=== PATIENT | female | born 1995 | race Two or more races ===

== ENCOUNTER 2024-10-08 20:36 | Emergency (ER) | payer MEDICAID, SELFPAY ==
[2024-10-08 20:37] VITALS: BP 163/75; PULSE 99; RESP 18; TEMP 36.9; O2SAT 100
--- NOTE | 2024-10-08 20:41 | PC.NURSE ---
Confirmed with charge entry Alex that pt is to be seen here in ED rather than sent straight to OB.
[2024-10-08 21:30] LABS: Collection Type, Urine Clean Catch
[2024-10-08 21:55] LABS: Bacteria,Urine Rare; Bilirubin,Urine Negative (Negative); Blood,Urine 2+ (Negative); Clarity,Urine Clear (Clear/Hazy); Color,Urine Colorless (Lt Yel-Yel); Glucose, Urine Negative (Negative); Ketones,Urine Negative (Negative); Leukocyte Esterase,Urine Positive (Negative); Nitrite,Urine Negative (Negative); PH,Urine 6.5 (5.0-7.0); Protein,Urine Negative (Neg - Trace); RBC,Urine 4 /hpf (0-3); Specific Gravity,Urine 1.005 (1.001-1.035); Squamous Epithelial Cell,Urine 3 /hpf (0-5); Urobilinogen,Urine Negative mg/dL (0.0-1.0); WBC,Urine 3 /hpf (0-5)
[2024-10-08 22:25] VITALS: BP 148/72; PULSE 82; RESP 18; O2SAT 98
--- NOTE | 2024-10-08 23:59 | EDNOTE_ITS ---
ED Female Urogenital RME/HPI General Chief complaint: Urogenital-Female Stated complaint: HEMATURIA Time Seen by Provider: 10/08/24 20:46 Arrival date/time: 10/08/24 20:36 28F with no significant PMH presents to ED with 2 days of dysuria/hematuria. Patient denies flank pain and fevers/chills. Patient is currently . Patient denies ab pain, but is not sure if there's vaginal bleeding. Limitations: no limitations Related Data Previous Rx's ?Medication ?Instructions ?Recorded cephalexin 500 mg capsule 500 mg PO TID 7 days #21 caps 10/08/24 Allergies Allergy/AdvReac Type Severity Reaction Status Date / Time No Known Allergies Allergy Verified 10/08/24 20:38 Review of Systems Review of Systems Systems Reviewed: All systems reviewed, normal except as documented Constitutional Constitutional: Reports system reviewed and no additional complaints, except as documented, Denies fever(s) and Denies headache(s) ENT Ears, Nose, Mouth, and Throat: Denies disequilibrium and Denies headache(s) Cardiovascular Cardiovascular: Reports system reviewed and no additional complaints, except as documented, Denies chest pain and Denies dyspnea Respiratory Respiratory: Reports system reviewed and no additional complaints, except as documented, Denies cough and Denies dyspnea Gastrointestinal Gastrointestinal: Reports system reviewed and no additional complaints, except as documented, Denies abdominal pain, Denies nausea and Denies vomiting Genitourinary Genitourinary: Reports as per HPI and Reports dysuria Neurologic Neurologic: Reports system reviewed and no additional complaints, except as documented, Denies confusion, Denies disequilibrium and Denies headache(s) Psychiatric Psychiatric: Denies confusion Past Medical History Past Medical History CARDIAC: Negative Cardiac Disorders or Congestive Heart Failure RESPIRATORY: Negative Chronic Obstructive Pulmonary Disease (COPD) or Asthma GENITOURINARY: Negative Renal Disease ENDOCRINE: Negative Diabetes Mellitus Type 1 or Diabetes Mellitus Type 2 HEMATOLOGIC: Negative Sickle Cell Disease Social History SMOKING STATUS: Never smoker SUBSTANCE USE: does not use ED Exam General Limitations: Present no limitations General appearance: Present alert and in no apparent distress Head Head exam: Present atraumatic Eye Eye exam: Present normal appearance, PERRL and EOMI ENT ENT exam: Present normal exam, normal oropharynx and mucous membranes moist Neck Neck exam: Present normal inspection, full ROM and trachea midline Chest Chest inspection: Present normal inspection and symmetric chest wall rise Respiratory Respiratory exam: Present normal lung sounds bilaterally Cardiovascular Cardiovascular exam: Present regular rate, normal rhythm and normal heart sounds Abdominal Exam Abdominal exam: Present soft and normal bowel sounds Extremities Exam Extremities exam: Present normal inspection and full ROM Back Exam Back exam: Present normal inspection and full ROM Neurological Exam Neurological exam: Present alert, oriented X3 and CN II-XII intact Psychiatric Psychiatric exam: Present normal affect and normal mood Skin Skin exam: Present warm, dry, intact and normal color Course Quality Measures none Orders Category Date Time Status Urinalysis Stat Lab 10/08/24 21:27 Completed Urine Culture Stat Lab 10/08/24 21:27 Received Vital Signs Vital signs: Vital Signs Temperature 98.5 F 10/08/24 20:37 Pulse Rate 99 10/08/24 20:37 Respiratory Rate 18 10/08/24 20:37 Blood Pressure 163/75 H 10/08/24 20:37 Pulse Oximetry (%) 100 10/08/24 20:37 Oxygen Delivery Method Room Air 10/08/24 20:37 O2 at 100% on RA and WNLs Urogenital - Female MDM Narrative MDM Narrative:: 28F with no significant PMH presents to ED with 2 days of dysuria/hematuria. Patient denies flank pain and fevers/chills. Patient is currently . Patient denies ab pain, but is not sure if there's vaginal bleeding. Physical exam reveals no ab/flank tenderness. Patient is afebrile, calm, and alert. UA clean except some blood. Will treat given and symptoms. Patient sent to OB upstairs for evaluation. Patient data External records reviewed:: None Clinical information provided by:: patient Social determinants that could affect healthcare access:: none Patient has the following chronic illnesses:: none How is presenting disease/condition affected by chronic disease/condition?: no chronic disease Evaluation data The following diagnostics were reviewed and interpreted by me:: lab results Lab and/or radiology exams considered but not ordered:: ordered Interpretation Summary: above Medications / Prescriptions Medications or Prescriptions considered but not ordered:: not ordered Medication administrations:: n/a Consultations Consultation(s) initiated? (list below): No Diagnosis Urogenital Female Differential Diagnosis: urinary tract infection, bacterial vaginosis, trichomoniasis, cervicitis, ovarian cyst, vaginitis, ruptured ovarian cyst, cyst of Bartholin's gland, cystitis, dysmenorrhea and other (dysuria) Most likely diagnosis given after review of the tests above:: dysuria Admission Indicated Admission indicated?: not indicated Admission Request Was there a request for admission?: No Disposition Plan Disposition Plan: Discharge Discharge Attestation Discharge Attestation: The patient and all family members were given an opportunity to ask questions and understood the discharge instructions. Discharge instructions specifically effects, indications for sooner follow up or return to the emergency department, and the expected course of current diagnosis. Patient condition: Stable Discharge Plan Plan Patient Disposition: HOME (Self Care) Disposition Comment: Stable Prescriptions/Referrals Prescriptions/Med Rec: New cephalexin 500 mg capsule 500 mg PO TID 7 Days Qty: 21 0RF Referrals: Nolberto Rodriguez MD [Primary Care Provider] - In 1 week Problem List Clinical Impression: Dysuria Patient/Caregiver Discharge Instructions Additional Instructions: Please follow-up with PCP within 24-48 hours and return immediately if symptoms worsen. Print Language: Georgian Stand Alone Forms: Patient Portal Info Letter ZHENG/RAUL Supervising Physician MARU Supervising Physician: Dr. Rosales
== END 2024-10-08 22:21 | disposition home or self-care (01) ==
PROVIDERS: Physician Assistant; Emergency Provider Emergency Medicine; PCP Family Medicine
DX: O26.899 Other specified pregnancy related conditions, unspecified trimester (principal); Z3A.00 Weeks of gestation of pregnancy not specified; R30.0 Dysuria
CPT/HCPCS: 81001; 87086; 99283

== ENCOUNTER 2024-10-08 22:20 | Observation (INO) | payer MEDICAID, SELFPAY ==
[2024-10-08 22:42] VITALS: BP 126/72; PULSE 91
[2024-10-08 23:30] VITALS: BMI 42.3
[2024-10-08] MEDS: cefTRIAXone 1,000 MG, LIDOCAINE 1% 20 ML 2.1 ML IM (23:43)
== END 2024-10-09 01:01 | disposition home or self-care (01) ==
PROVIDERS: Admitting Provider Obstetrics & Gynecology; Visit Provider Obstetrics & Gynecology
DX: O46.93 Antepartum hemorrhage, unspecified, third trimester (principal); Z3A.29 29 weeks gestation of pregnancy
CPT/HCPCS: 59899; 96372; J0696; J3490

== ENCOUNTER 2024-12-13 09:35 | Outpatient (RCR) | payer MEDICAID, SELFPAY ==
--- NOTE | 2024-11-29 10:05 | XR_ITS ---
Examination: Biophysical profile, ultrasound Date and time of exam: November 29, 2024 1021 hours INDICATIONS: Diagnosis maternal obesity Technique: Multiple transabdominal sonographic images of the pelvis abdomen obtained. Attention is directed to the breathing movement, gross body movement, amniotic fluid volume and tone. Findings: Amniotic fluid index 18.1 cm Total biophysical profile is 8 of 8. breathing movement is 2. Gross body movement is 2. tone is 2. Qualitative amniotic fluid volume is 2 Impression: Biophysical profile is 8 of 8.
[2024-11-29 11:27] VITALS: BP 116/67; PULSE 97; RESP 18; TEMP 36.8
--- NOTE | 2024-12-06 10:02 | XR_ITS ---
Examination: Biophysical profile, ultrasound Date and time of exam: Febrile 4 2024 1432 hours INDICATIONS: Diagnosis maternal obesity Technique: Multiple transabdominal sonographic images of the pelvis abdomen obtained. Attention is directed to the breathing movement, gross body movement, amniotic fluid volume and tone. Findings: Amniotic fluid index 14.8 cm Total biophysical profile is 8 of 8. breathing movement is 2. Gross body movement is 2. tone is 2. Qualitative amniotic fluid volume is 2 Impression: Biophysical profile is 8 of 8.
[2024-12-06 10:48] VITALS: BP 115/75; PULSE 91; RESP 19; TEMP 36.3
--- NOTE | 2024-12-13 09:43 | XR_ITS ---
Examination: Biophysical profile, ultrasound Date and time of exam: December 13, 2019 5:10 AM INDICATIONS: Diagnosis obesity complicating Technique: Multiple transabdominal sonographic images of the pelvis abdomen obtained. Attention is directed to the breathing movement, gross body movement, amniotic fluid volume and tone. Findings: Amniotic fluid index 8.9 cm Total biophysical profile is 8 of 8. breathing movement is 2. Gross body movement is 2. tone is 2. Qualitative amniotic fluid volume is 2 Impression: Biophysical profile is 8 of 8.
[2024-12-13 10:28] VITALS: BP 131/79; PULSE 93; RESP 15; TEMP 36.7
== END 2024-12-13 23:59 | disposition home or self-care (01) ==
LOC: S4S1 09:35
PROVIDERS: PCP Nurse Practitioner Women's Health; Referring Provider Nurse Practitioner Women's Health; Visit Provider Nurse Practitioner Women's Health
DX: O99.213 Obesity complicating pregnancy, third trimester (principal); E66.9 Obesity, unspecified; Z3A.39 39 weeks gestation of pregnancy
CPT/HCPCS: 59025; 76819

== ENCOUNTER 2024-12-17 16:08 | Observation (INO) | payer MEDICAID, SELFPAY ==
[2024-12-17 16:20] VITALS: BP 130/87; PULSE 103
[2024-12-17 16:22] VITALS: TEMP 36.8; BMI 46.0
[2024-12-17 16:28] VITALS: BP 130/87; PULSE 103; RESP 100; RESP 18; TEMP 36.8
--- NOTE | 2024-12-17 17:04 | ESPR_ITS ---
Documentation for date of: 12/17/24 OB Labor Progress Note Assessment and Plan Comments: Patient is a 29yo G1 with SIUP at 39+5wk presenting to L&D for antepartum testing indicated for elevated starting BMI. She notes no painful/regular ctx, no vaginal bleeding, no loss of fluid. Normal movement. Only concern is pelvic pressure. Current : This is complicated by: current BMI 46 She has had regular OB care with her OBGYN ROS negative other than what was described above. Vitals wnl, afebrile General: well developed, well nourished, no acute distress, conversant Cardiac: normal heart rate Lungs: breathing without distress Abdomen: soft, gravid, non-tender, no rebound or guarding Extremities: no pain with palpation of calves NST: Reactive, +accels, no decels, mod bharat [place]: no regular ctx pattern Bedside ultrasound performed by Dr. Dodge: SIUP with cephalic presentation, +FCA, active FM, posterior placenta, DENISE 9cm Assessment: Patient is a 29yo G1 with SIUP at 39+5wk with reassuring maternal and status based on NST/DENISE (modified BPP). Vitals wnl, benign exam. Plan: -Discussed reassuring findings with patient -Follow up: will be called for IOL as soon as bed is available -Discussed return precautions. Dalila Dodge MD
== END 2024-12-17 17:05 | disposition home or self-care (01) ==
PROVIDERS: Admitting Provider Obstetrics & Gynecology; PCP Family Medicine; Visit Provider Obstetrics & Gynecology
DX: O26.893 Other specified pregnancy related conditions, third trimester (principal); Z3A.39 39 weeks gestation of pregnancy; R10.30 Lower abdominal pain, unspecified
CPT/HCPCS: 59025; 59899

== ENCOUNTER 2024-12-18 01:11 | Inpatient (IN) | payer MEDICAID, SELFPAY ==
[2024-12-18] VITALS (20 sets, daily range): BP systolic 105–172; BP diastolic 58–94; PULSE 93–110; RESP 15–18; TEMP 36.6–37.4; BMI 47.0
--- NOTE | 2024-12-18 01:40 | XR_ITS ---
Examination: Complete OB ultrasound greater than 14 weeks Date and time of exam: December 20, 2024 0205 hrs. Indications: Labor induction today, unknown presentation Findings: Viable intrauterine single fetus with single amniotic sac presentation cephalic spine anterior Cardiac motion 155 BPM Placenta fundal grade 3 Umbilical cord insertion seen Amniotic fluid index 17.4 cm spine anterior Cervix 3.6 cm Ovaries obscured by bowel gas. Composite estimated gestational age based on BPD, head circumference, abdominal circumference, femur length is 39 weeks 2 days Estimated weight 3725 g. Survey of intracranial anatomy, spinal anatomy, abdominal anatomy, four-chamber heart performed with no abnormalities identified. Impression: Viable intrauterine gestation cephalic presentation.
[2024-12-18 01:46] LABS: Basophils % (Auto) 0 % (0-2.5); Eosinophils # (Auto) 0.2 Thou/mm3 (0.0-0.5); Eosinophils % (Auto) 2 % (0-10); Hematocrit 30.9 % (36.0-46.0); Hemoglobin 10.4 g/dL (12.0-16.0); Immature Granulocytes % (Auto) 1 % (0-0); Immature Granulocytes Auto 0.05 Thou/mm3 (0.00-0.00); Lymphocytes # (Auto) 2.1 Thou/mm3 (1.0-4.8); Lymphocytes % (Auto) 21 % (10-50); Mean Corpuscular HGB Conc 33.7 g/dl (31.0-37.0); Mean Corpuscular Volume 80 fL (80-100); Monocytes # (Auto) 0.6 Thou/mm3 (0.0-0.8); Monocytes % (Auto) 6 % (0-12); Neutrophils % (Auto) 70 % (37-80); Nucleated Red Blood Cell % 0 /100 WBC (0); Platelet Count 294 Thou/mm3 (140-440); RDW Standard Deviation 42.9 fL (36.4-46.3); Red Blood Count 3.85 Miln/mm3 (4.00-5.20)
[2024-12-18 02:14] LABS: Amphetamine/Metham Scrn,Ur OB Negative (Negative); Benzoylecgonine Screen, Ur OB Negative (Negative); Opiate Screen,Urine OB Negative (Negative); THC Screen,Urine OB Negative (Negative)
[2024-12-18 03:51] LABS: Syphilis Nonreactive (Nonreactive)
[2024-12-18] MEDS: DINOPROSTONE 10 MG VAG.SUPP VAGINAL (04:46)
--- NOTE | 2024-12-18 11:36 | PD.LDHP ---
Documentation for date of: 12/18/24 OB Labor/Induct. HPI History of Present Illness Chief complaint: scheduled induction : 1 History of sections: No History of : No Date of last menstrual period: 03/14/24 JESSE: 12/19/24 Gestational Age (weeks): 39 Gestational Age (days): 6 Gestational age based on last menstrual period: 39 Indication for induction: medical complication (Obesity, starting BMI 39) History of present illness: Patient presents for scheduled IOL. She has no regular/painful ctx. No LOF, no vaginal bleeding. Feels normal movement. History of Present Dating criteria: LMP confirmed by 2nd trimester US Adequate Care: Yes Medical complications: other (Obesity) Labs Labs: Negative: Hepatitis B, HIV, Chlamydia, Gonorrhea and Group Beta Strep Review of Systems Review of Systems Narrative Review of Systems: Review of Systems Systems Reviewed: All systems reviewed, normal except as documented Constitutional Constitutional: Denies body ache(s), Denies chills, Denies fever(s) and Denies headache(s) ENT Ears, Nose, Mouth, and Throat: Denies headache(s) and Denies vertigo Cardiovascular Cardiovascular: Denies chest pain, Denies palpitations, Denies dyspnea and Denies syncope Respiratory Respiratory: Denies cough, Denies dyspnea Gastrointestinal Gastrointestinal: Denies nausea and Denies vomiting Neurologic Neurologic: Denies convulsions, Denies headache(s), Denies other visual disturbances, Denies syncope and Denies vertigo Past Medical History Family History OTHER FAMILY HX: mother has T2DM Surgical History SURGICAL: Negative Section OTHER SURGICAL HX: denies Social History SOCIAL: No ETOH, tobacco or illicit drug use Past Medical History Comments PMH COMMENT: Starting BMI 39 Hx of nephrolithiasis 2019 Seasonal allergies Family hx of DM. Normal 2hr glucose test and HgbA1c 5.1 Meds Home Medications and Allergies Home Medications ?Medication ?Instructions ?Recorded ?Confirmed ?Type PNV#14-iron [id number] cap PO DAILY 12/17/24 History 27 mg iron-1 mg-300 mg-50 mg capsule Allergies Allergy/AdvReac Type Severity Reaction Status Date / Time No Known Allergies Allergy Verified 12/18/24 04:22 OB Exam Physical Exam Vital signs: Temp Pulse Resp BP 98.2 F 93 15 135/86 H 12/18/24 07:02 12/18/24 11:16 12/18/24 01:33 12/18/24 11:16 Narrative: General: well developed, well nourished, no acute distress, conversant Cardiac: normal heart rate Lungs: breathing without distress Abdomen: soft, gravid, obese, non-tender, no rebound or guarding Extremities: no pain with palpation of calves Detailed Labor and Delivery Exam Dilation (cm): 1 Effacement (%): 0 Cervix position: posterior station: -3 Consistency: firm Presentation: Vertex Membranes: intact monitor accelerations: 15x15 monitor decelerations: None custodial variability: Moderate (11-25) Contraction frequency (min): no regular ctx OB Results Labs 12/18/24 01:25 Labs: Short CBC 12/18/24 Range/Units 01:25 WBC 10.0 (3.6-11.0) Thou/mm3 Hgb 10.4 L (12.0-16.0) g/dL Hct 30.9 L (36.0-46.0) % Plt Count 294 (140-440) Thou/mm3 OB Assessment & Plan Assessment and Plan (1) Obesity affecting in third trimester: Status: Acute Assessment and plan: Sara is a 29yo G1 with SIUP at 39&6wk presenting for scheduled IOL 2/2 starting BMI 39. SCE: 1/thick/high, posterior, cephalic. Vitals wnl, benign exam. Reassuring assessment overall. care: Good care with [facility] PMhx/PNC significant for: -Starting BMI 39 -Hx of nephrolithiasis 2019 -Seasonal allergies -Family hx of DM. Normal 2hr glucose test and HgbA1c 5.1 Plan: -Admit to L&D -Establish IV, routine labs -CEFM -Regular diet [id number], then clear liquid diet in labor -[place] Aide/consent re: iol and -GBS status: negative -Will initiate IOL with: cervidil -Anticipate -Safe to proceed Dalila Dodge MD (1) Obesity affecting in third trimester Qualifiers: Obesity type affecting : other obesity Qualified Code(s): O99.213 - Obesity complicating , third trimester; E66.89 - Other obesity not elsewhere classified
[2024-12-18] MEDS: MISOPROSTOL 50 mCg TABLET PO ×2 (14:54→19:01)
[2024-12-18] MEDS: OXYTOCIN in NS 30 units 30 UNIT/500 ML BAG IV (23:39)
[2024-12-19] VITALS (323 sets, daily range): BP systolic 107–159; BP diastolic 58–108; PULSE 80–124; RESP 18; TEMP 36.6–37; O2SAT 80–100
[2024-12-19] MEDS: RINGERS LACTATED 1000 ML 1,000 ML 125 ML IV ×2 (02:23→04:08)
--- NOTE | 2024-12-19 03:56 | PD.LDPN ---
Documentation for date of: 12/19/24 OB Labor Progress Note Pelvic Exam Dilation (cm): 5 Effacement (%): 75 station: -2 Assessment and Plan Comments: Patient just received epidural and is comfortable. Normotensive to mild range bp's, afebrile On exam, there is grossly ruptured membranes, clear. SCE now 5/80/-2. RN requested placement of IUPC and FSE to better monitor FHRT and ctx pattern. These were placed without incident. Cat I FHRT Plan to continue to titrate pitocin per protocol CEFM Continue to closely monitor Safe to proceed Dalila Dodge MD
--- NOTE | 2024-12-19 10:28 | PD.LDPN ---
Documentation for date of: 12/19/24 OB Labor Progress Note Pelvic Exam Dilation (cm): 5 Effacement (%): 75 station: -2 Contractions Contraction frequency: no regular ctx Assessment and Plan Comments: Patient comfortable with epidural. IV pitocin has been at 5mu for quite a while. Vitals wnl, afebrile Cat I FHRT Ctx q5min SCE: 5/80/-2, not much change from previous. Plan: -Titrate up pitocin per protocol to obtain adequate MVUs -CEFM -Continue to closely monitor -Recheck in 2hr or earlier as indicated -Safe to proceed Dalila Dodge MD
--- NOTE | 2024-12-19 20:36 | PD.LDPN ---
Documentation for date of: 12/19/24 OB Labor Progress Note Pelvic Exam Dilation (cm): 8 Effacement (%): 80 station: -1 Assessment and Plan Comments: Patient doing well, has just a bit of discomfort on the lower right side of uterus with her epidural. Vitals: normotensive to mild range bp's, afebrile Cat I FHRT with regular ctx SCE: 80/-1 Will continue to titrate pitocin per protocol Continue to closely observe PIH labs for mild range bp's CEFM Plan re-check in 2hr or sooner if indicated Safe to proceed Dalila Dodge MD
[2024-12-19 22:03] LABS: Creatinine,Random Urine 155 mg/dL (30-125); Protein Total, Random Urine 169 mg/dL (1-14)
[2024-12-19 22:04] LABS: Alanine Aminotransferase 12 U/L (10-49); Albumin, Serum 3.5 gm/dL (3.5-5.0); Albumin/Globulin Ratio 1.3 (1.2-2.2); Alkaline Phosphatase 236 U/L (46-116); Anion Gap 11 (7-16); Aspartate Amino Transferase 22 U/L (0-34); BUN/Creatinine Ratio 16 Ratio (12-20); Bilirubin,Total 0.7 mg/dL (0.3-1.2); Blood Urea Nitrogen 11 mg/dL (9-23); Calcium 8.8 mg/dL (8.3-10.6); Calcium (Corrected) 9.2 mg/dL (8.5-10.1); Carbon Dioxide 18.1 mMol/L (20.0-31.0); Chloride 110 mMol/L (98-107); Creatinine (Component) 0.7 mg/dL (0.6-1.3); Globulin 2.6 gm/dL (2.3-3.5); Glucose 73 mg/dL (74-106); Osmolality,Calculated 275 (275-295); Potassium 3.9 mMol/L (3.4-5.1); Sodium 139 mMol/L (136-145); Total Protein 6.1 gm/dL (5.7-8.2); eGFR > 60 See Note
[2024-12-20] VITALS (31 sets, daily range): BP systolic 101–148; BP diastolic 68–88; PULSE 87–124; RESP 16–19; TEMP 36.5–38.4; O2SAT 95–100
[2024-12-20] MEDS: FAMOTIDINE INJ 10 MG/ML VIAL 2 ML 20 MG IV (01:38)
[2024-12-20] MEDS: ceFAZolin/D5W 2 GM IV 2 GM/100 ML BAG IV (01:38)
[2024-12-20] MEDS: CITRIC ACID/SODIUM CITR 15 ML UDC (BICITRA) 30 ML PO (01:38)
[2024-12-20] MEDS: AZITHROMYCIN INJ 500 MG in SODIUM CHLORIDE 0.9% 250 ML 250 ML 250 MG IV (01:42)
--- NOTE | 2024-12-20 01:47 | ESPR_ITS ---
Documentation for date of: 12/20/24 OB Labor Progress Note Pelvic Exam Dilation (cm): 8 Effacement (%): 80 station: -1 Contractions Contraction frequency: no regular ctx Assessment and Plan Comments: Decision for section Patient having more discomfort, mostly right lower abdomen, despite epidural. R equesting delivery. Vitals: bp normal to mild range, afebrile Cat I FHRT SCE: 8/80/-1, light meconium staining. PIH labs: normal creatinine and LFTs. Urine p:c 1.1. New diagnosis of pre-eclampsia withOUT severe features Given no cervical change in over 5 hours, will proceed with PLTCS for arrest of dilation. -Counseled/consented re: section. Discussed all r/b/a to include: bleeding (possible need for blood transfusion), infection (subcutaneous, deeper layers or uterine with possible need for prolonged admission or re-admission for IV antibiotics, I&D with wound packing, etc), injury to nearby structures such as bladder, bowel, ureters, blood vessels, nerves with possible need for re- operation, pain, injury to baby, hysterectomy, DVT/PE, . Answered all questions to patient and their support person's satisfaction. -IV abx ppx: ancef 2g IV x1 and azithromycin 500mg IV x1 -Nursing and anesthesia team aware of plan for section. Will proceed to OR when team is ready Dalila Dodge MD
--- NOTE | 2024-12-20 02:44 | SUR.OPER ---
heart tones with results of 134 BPM with FECG/MECG attachment and machine. Viable male born at 0216.
[2024-12-20] MEDS: LOPERAMIDE 2 MG CAPSULE 4 MG PO (03:22)
--- NOTE | 2024-12-20 03:29 | ESOP_ITS ---
Operative Note - SENIOR BENEFITS MANAGER Procedure Date of procedure: 12/20/24 Procedure Performed: primary low transverse section Indication: Sara is a 29yo with SIUP at 40w1d undergoing IOL for obesity, starting BMI 39. She received cervidil, cytotec, cervical cano bulb and pitocin. She experienced arrest of dilation at 7cm for > 5 hours despite adequate MVUs on high dose pitocin. During her labor course she had mild range blood pressures, so PIH labs were performed and urine p:c was 1.1, giving diagnosis of pre- eclampsia withOUT severe features. Pre-Op diagnosis: SIUP at 40w1d Obesity, starting BMI 39 Arrest of dilation Pre-eclampsia withOUT severe features Post-Op diagnosis: SIUP at 40w1d Obesity, starting BMI 39 Arrest of dilation Pre-eclampsia withOUT severe features Anesthesia type: Epidural Procedure description: After obtaining informed consent, the patient was taken to the operating room. There was reassuring heart rate tracing prior. She had epidural in place. A cano catheter was also in place. Bilateral sequential compression devices were placed. She was prepped and draped in the normal sterile fashion in the dorsal supine position with left lateral tilt. A timeout was performed to confirm patient name, date of , procedure and indication. The team was in agreement. Spinal anesthesia was found to be adequate using an Allis clamp. Anceph 2g IV x1 and azithromycin 500mg IV x1 were given for prophylaxis. A Pfannenstiel skin incision was then made with the scalpel and carried through to the underlying layer of fascia. The fascia was incised in the midine and the incision was extended laterally with the Camarena scissors. The superior and inferior aspects of the fascial incision were then grasped with the Noam clamps, elevated and the underlying rectus muscles were dissected off bluntly and sharply. The peritoneum was entered digitally and the rectus muscles were then in the midline. The peritoneal incision was then extended superiorly and inferiorly with good visualization of the bladder. An Andrew re tractor was placed. The lower uterine segment was scored in a transverse fashion with the scalpel. The uterus was then entered bluntly and the incision was extended with traction with clear amniotic fluid noted. The 's head was elevated to the level of the incision. Fundal pressure was applied. The head was delivered atraumatically in the OA position. The anterior shoulder, posterior shoulder and corpus were delivered without difficulty. The nose and mouth were suctioned with bulb suction and cord was clamped x2 and cut. Infant was vigorous. The infant was handed off to the awaiting nursing team. Cord blood obtained for typing. The placenta was then removed with uterine massage and cord traction. The uterus was left in situ for repair and cleared of all clot and debris. The uterine incision was repaired with 0-vicryl suture in a running locking fashion. A second layer of O-vicryl was used to closed the hysterotomy incision in an imbricating fashion. The uterine incision was inspected and hemostasis was noted. In addition to standard IV pitocin, patient received TXA 1g IV x1 and hemabate 0.25mg IM x1 with good uterine tone achieved. The gutters were cleared of all clot. Andrew retractor was removed. The peritoneum was closed using a 3-0 vicryl suture in running fashion. The rectus muscles were inspected and small areas of oozing were cauterized. The fascia was reapproximated with 0-Vicryl suture in a running fashion. The subcutaneous tissue was then irrigated. Alma's fascia was closed using 3-0 vicryl suture in a running fashion. At that point SHARLENE Heredia sutured the skin with 4-0 monocryl suture in running subcuticular fashion. The incision was cleaned with a wet lap and dried with a dry lap. [id number] bandage was applied overlying the incision and activated according to stamping operator instructions. Fundus was firm at the umbilicus. Sponge, lap and needle counts were correct x2. Patient had significant diarrheal episode with fundal massage which necessitated cleaning her and switching out the cano catheter. Will give immodium to counteract hemabate side effect. The procedure was without complications and the patient tolerated the procedure well. She was taken to recover further on Labor and Delivery, in stable condition. Fluids: crystalloid Fluid amount (mL): 1,300 Urine output (mL): 250 Specimen: none Estimated blood loss (ml): 700 Findings: Male in cephalic presentation, apgars 8/9, [id number], TOB 0216. Normal appearing uterus, fallopian tubes and ovaries. Complications: none Surgical staff Operation Date: 12/20/24 02:00 Case Staff EYE CLINIC MANAGER: Srinivasa Forde Diagnosis Discharge Diagnosis (1) Arrest of dilation, delivered, current hospitalization: Status: Acute (2) Mild pre-eclampsia: Status: Acute (3) Obesity affecting in third trimester: Status: Acute Problem List Completed Was Problem List Reviewed/Reconciled?: Yes (2) Mild pre-eclampsia Qualifiers: Trimester: third trimester Qualified Code(s): O14.03 - Mild to moderate pre- eclampsia, third trimester (3) Obesity affecting in third trimester Qualifiers: Obesity type affecting : other obesity Qualified Code(s): O99.213 - Obesity complicating , third trimester; E66.89 - Other obesity not elsewhere classified
[2024-12-20] MEDS: OXYTOCIN in NS 20 units 20 UNIT/1,000 ML BAG 125 UNIT IV (05:24)
--- NOTE | 2024-12-20 10:39 | PC.SS ---
SS conducted bedside contact with the patient to address nursing referral indicating patient was late to care. SS introduced self and role.? SS asked for permission to discuss referral in the presence of FOB. Patient agreed.? SS discussed with patient basis of referral. Patient confirmed she was late to care because she didn?t know she was . There was a barrier to getting a scheduled appointment with OB services.? ticket counter, Gracy Chapin at [facility] provided services.? Patient resides with [facility] and his 16 year old son. Patient describes, FOB, Олег Braun, as involved with the . This is patient?s first baby. , baby boy delivered . Patient states consistency with OB appointments. Patient plans on .? Patient is not aligned yet with WIC, SNAP or TANF. Patient may consider applying for SNAP. Patient denies history of drug/alcohol use. Patient denies mental health history. Patient denies any episodes of DV. Patient has access to appropriate supplies and equipment.? Patient has access to a car seat.? FOB will provide transportation upon discharge.? Patient describes possessing support system consisting of spouse and extended family.? ambulatory services representative provided resources to include:? Parenting network, warm line and community numbers.? No further intervention required at this time, psychologist social will be available to address any further concerns.? SS updated bedside nurse.
--- NOTE | 2024-12-20 12:20 | PC.NURSE ---
removed rectal tube, patient tolerated well.
[2024-12-20] MEDS: KETOROLAC INJ 30 MG/ML VIAL IVP (13:04)
--- NOTE | 2024-12-20 17:41 | PC.NURSE ---
patient refused to get IV fluid after 2nd bag of NS with oxytocin finished, she stated that she wants to drink water instead of IV fluid.
[2024-12-21 00:11] VITALS: BP 103/59; PULSE 110; RESP 19; TEMP 36.6; O2SAT 100
[2024-12-21 06:07] LABS: Basophils % (Auto) 0 % (0-2.5); Eosinophils # (Auto) 0.1 Thou/mm3 (0.0-0.5); Eosinophils % (Auto) 1 % (0-10); Hematocrit 25.4 % (36.0-46.0); Immature Granulocytes % (Auto) 1 % (0-0); Lymphocytes # (Auto) 1.7 Thou/mm3 (1.0-4.8); Lymphocytes % (Auto) 10 % (10-50); Mean Corpuscular HGB Conc 32.7 g/dl (31.0-37.0); Mean Corpuscular Hemoglobin 26.7 pg (25.0-35.0); Mean Corpuscular Volume 82 fL (80-100); Monocytes % (Auto) 6 % (0-12); Neutrophils # (Auto) 14.1 Thou/mm3 (1.8-7.7); Neutrophils % (Auto) 82 % (37-80); Nucleated Red Blood Cell % 0 /100 WBC (0); Platelet Count 227 Thou/mm3 (140-440); RDW Standard Deviation 45.4 fL (36.4-46.3); Red Blood Count 3.11 Miln/mm3 (4.00-5.20); White Blood Count 17.2 Thou/mm3 (3.6-11.0)
[2024-12-21 06:12] LABS: Hemoglobin 8.3 g/dL (12.0-16.0)
--- NOTE | 2024-12-21 06:32 | PC.NURSE ---
[address] Zhao to notify her of the patents current WBC level 17.2, HGB 8.3, and HCT 25.4, no new orders.
[2024-12-21] MEDS: HYDROcodone/APAP 5/325 TABLET 1 TAB PO ×2 (07:03→22:41)
[2024-12-21 08:30] VITALS: BP 115/78; PULSE 102; RESP 18; TEMP 36.7; O2SAT 99
--- NOTE | 2024-12-21 10:32 | ESPR_ITS ---
Subjective Subjective Interval history: Patient doing well overall. Pain is controlled. She is ambulating no lightheadedness/dizziness. Voiding spontaneously since cano was removed, no issues. Tolerating regular diet without nausea/vomiting. Passing gas. No fevers/chills, no CP/SOB. Exam Vital Signs Temp Pulse Resp BP Pulse Ox O2 Del Method 98.1 F 102 H 18 115/78 99 Room Air 12/21/24 08:30 12/21/24 08:30 12/21/24 08:30 12/21/24 08:30 12/21/24 08:30 12/21/24 08:30 Narrative Exam General: well developed, well nourished, no acute distress, conversant Cardiac: normal heart rate Lungs: breathing without distress Abdomen: soft, post-gravid, non-tender, no rebound or guarding, pfannenstiel incision covered by dry/clean/intact prineo bandage. Incision well reapproximated. No erythema, drainage or induration. Fundus firm at u-2cm. Extremities: no pain with palpation of calves, trace edema of BLE Objective Labs 12/21/24 05:20 12/19/24 20:54 Labs: Laboratory Results - last 24 hr 12/21/24 12/21/24 05:20 09:20 WBC 17.2 H D RBC 3.11 L Hgb 8.3 L D Hct 25.4 L MCV 82 MCH 26.7 MCHC 32.7 RDW Std Deviation 45.4 Plt Count 227 D Neut % (Auto) 82 H Lymph % (Auto) 10 [place] % (Auto) 6 Eos % (Auto) 1 Baso % (Auto) 0 Neut # (Auto) 14.1 H Lymph # (Auto) 1.7 [place] # (Auto) 1.0 H Eos # (Auto) 0.1 Baso # (Auto) 0.0 Immature Gran # (Auto) 0.20 H Absolute Nucleated RBC 0.00 Immature Gran % 1 H Nucleated RBC % 0 Crossmatch See Detail Assessment & Plan Problem List (1) Arrest of dilation, delivered, current hospitalization: Status: Acute Assessment and plan: Sara is a 29yo [id number] s/p uncomplicated PLTCS for arrest of dilation during IOL for obesity, doing well on POD 1. She was diagnosed with pre-eclampsia withOUT severe features in labor by mild range bp's with urine p:c 1.1. Normotensive with slight tachycardia, afebrile, benign exam. Hemodynamically stable with no evidence of infection. Appropriate change in H/H (8.3 from 10.4). Plan: -Continue routine /post-op care -Repeat CBC tomorrow am to follow for slight tachycardia -Regular diet -motrin 800mg PO Q8hr, norco 5/325mg PO Q6hr prn pain -Encourage ambulation and use of IS -Possible discharge home tomorrow if meeting all milestones (2) Mild pre-eclampsia: Status: Acute (3) Obesity affecting in third trimester: Status: Acute Time Spent With Patient Time: Total time spent is greater than 50% in coordination of care (as documented) at patient's floor/unit and/or counseling patient:
[2024-12-21 12:15] VITALS: BP 125/80; PULSE 100; RESP 18; TEMP 37.2; O2SAT 100
[2024-12-21 16:20] VITALS: BP 117/62; PULSE 102; RESP 18; TEMP 36.8; O2SAT 98
[2024-12-21 20:16] VITALS: BP 117/78; PULSE 106; RESP 22; TEMP 37.3; O2SAT 99
[2024-12-22] MEDS: guaiFENesin/DM 10 ML UDC PO (01:33)
[2024-12-22 03:43] VITALS: BP 114/71; PULSE 105; RESP 24; TEMP 36.9; O2SAT 97
[2024-12-22 07:15] LABS: Basophils % (Auto) 0 % (0-2.5); Eosinophils # (Auto) 0.1 Thou/mm3 (0.0-0.5); Eosinophils % (Auto) 1 % (0-10); Hematocrit 24.7 % (36.0-46.0); Immature Granulocytes % (Auto) 1 % (0-0); Immature Granulocytes Auto 0.16 Thou/mm3 (0.00-0.00); Lymphocytes # (Auto) 1.6 Thou/mm3 (1.0-4.8); Lymphocytes % (Auto) 10 % (10-50); Mean Corpuscular HGB Conc 32.4 g/dl (31.0-37.0); Mean Corpuscular Hemoglobin 26.7 pg (25.0-35.0); Mean Corpuscular Volume 82 fL (80-100); Monocytes # (Auto) 0.8 Thou/mm3 (0.0-0.8); Monocytes % (Auto) 5 % (0-12); Neutrophils # (Auto) 12.7 Thou/mm3 (1.8-7.7); Neutrophils % (Auto) 83 % (37-80); Nucleated Red Blood Cell % 0 /100 WBC (0); Platelet Count 230 Thou/mm3 (140-440); RDW Standard Deviation 46.1 fL (36.4-46.3); White Blood Count 15.4 Thou/mm3 (3.6-11.0)
[2024-12-22 08:00] VITALS: BP 128/81; PULSE 103; RESP 20; TEMP 36.9; O2SAT 97
[2024-12-22] MEDS: HYDROcodone/APAP 5/325 TABLET 1 TAB PO (08:20)
--- NOTE | 2024-12-22 09:07 | ESPR_ITS ---
Subjective Subjective Interval history: Patient seen at the bedside denies any nausea vomiting still feels a little dizzy when she gets up. Denies any heavy vaginal bleeding with clots Exam Vital Signs Temp Pulse Resp BP Pulse Ox O2 Del Method 98.5 F 103 H 20 128/81 97 Room Air 12/22/24 08:00 12/22/24 08:00 12/22/24 08:00 12/22/24 08:00 12/22/24 08:00 12/22/24 08:00 Constitutional Constitutional: no acute distress Routine HEENT Exam Head: Present normocephalic and atraumatic Eye: Present EOMI and PERRL ENT: Present mucous membranes moist Routine Neck Exam Neck: Present supple and trachea midline Routine Respiratory Exam Respiratory: Present chest non-tender, lungs clear, normal breath sounds and no resp distress Routine Cardiovascular Exam Cardiovascular: Present RRR Routine Abdominal Exam Abdominal: Present soft and normoactive bowel sounds Routine Extremities Exam Extremities: Present full ROM Routine Skin Exam Skin: Present intact, dry and warm Routine Neurological Exam Neurological: Present alert, oriented X3 and CN II-XII intact Routine Psychiatric Exam Psychiatric: Present normal affect and normal thought process Objective Labs 12/22/24 05:47 12/19/24 20:54 Labs: Laboratory Results - last 24 hr 12/21/24 12/22/24 09:20 05:47 WBC 15.4 H RBC 3.00 L Hgb 8.0 L Hct 24.7 L MCV 82 MCH 26.7 MCHC 32.4 RDW Std Deviation 46.1 Plt Count 230 Neut % (Auto) 83 H Lymph % (Auto) 10 [place] % (Auto) 5 Eos % (Auto) 1 Baso % (Auto) 0 Neut # (Auto) 12.7 H Lymph # (Auto) 1.6 [place] # (Auto) 0.8 Eos # (Auto) 0.1 Baso # (Auto) 0.0 Immature Gran # (Auto) 0.16 H Absolute Nucleated RBC 0.00 Immature Gran % 1 H Nucleated RBC % 0 Blood Type O Positive Antibody Screen NEGATIVE Crossmatch See Detail Blood Bank Wristband ID Yes Assessment & Plan Problem List (1) Arrest of dilation, delivered, current hospitalization: Status: Acute (2) Mild pre-eclampsia: Status: Acute (3) Obesity affecting in third trimester: Status: Acute Assessment Comment Assessment comment: 29-year-old status post , postop day 3 Postop anemia hemoglobin 8.3 dropped to 8 today morning Symptomatic, heart rate more than 100 persistent Plan Comment Plan Comment: Transfusion with 1 unit packed RBC repeat CBC in 2 to 4 hours Time Spent With Patient Time: Total time spent is greater than 50% in coordination of care (as documented) at patient's floor/unit and/or counseling patient:
--- NOTE | 2024-12-22 10:30 | PC.NURSE ---
Patient refused blood transfusion, made aware. Patient given education
--- NOTE | 2024-12-22 10:54 | ESDS_ITS ---
DS: Providers Provider Date of admission: 12/18/24 01:11 Primary care physician: Nolberto Rodriguez MD Admitting Provider: Dalila Dodge MD Attending Provider on Admission: Renetta Zhao MD Consults: 12/20/24 03:25 Referral Routine Comment: Attending Provider on DC: Renetta Zhao MD Discharging Provider: Renetta Zhao MD DS: Diagnosis Problem List Completed Was Problem List Reviewed/Reconciled?: Yes Summary/Hosp Course Brief History: Patient has been doing well, can be discharged today , declined Blood transfusion Peripartum Data Procedures: Procedures Operation Date: 12/20/24 02:00 Actual Procedure Side Surgeon p Primary Section in OB/OR Not Applicable Dalila Dodge MD Time Spent with Patient Time attestation: Total time spent providing and/or coordinating discharge services: Exam Vital Signs Temp Pulse Resp BP Pulse Ox O2 Del Method 98.5 F 103 H 20 128/81 97 Room Air 12/22/24 08:00 12/22/24 08:00 12/22/24 08:00 12/22/24 08:00 12/22/24 08:00 12/22/24 08:00 Constitutional Constitutional: no acute distress Routine HEENT Exam Head: Present normocephalic and atraumatic Eye: Present EOMI and PERRL ENT: Present mucous membranes moist Routine Neck Exam Neck: Present supple and trachea midline Routine Respiratory Exam Respiratory: Present chest non-tender, lungs clear, normal breath sounds and no resp distress Routine Cardiovascular Exam Cardiovascular: Present RRR Routine Abdominal Exam Abdominal: Present soft and normoactive bowel sounds Routine Extremities Exam Extremities: Present full ROM Routine Skin Exam Skin: Present intact, dry and warm Routine Neurological Exam Neurological: Present alert, oriented X3 and CN II-XII intact Routine Psychiatric Exam Psychiatric: Present normal affect and normal thought process Discharge Plan Plan Patient Disposition: HOME (Self Care) Patient condition on transfer: Stable Prescriptions/Referrals Prescriptions/Med Rec: New acetaminophen-codeine 300-15 mg tablet 1 tab PO Q12H PRN (Reason: pain) Qty: 14 0RF ibuprofen 800 mg tablet 800 mg PO Q8H PRN (Reason: pain) Qty: 30 0RF No Action PNV #[id number] 27 mg iron-1 mg -300 mg-50 mg capsule PO DAILY Referrals: Nolberto Rodriguez MD [Primary Care Provider] - Patient/Caregiver Discharge Instructions Discharge Activity: activity as tolerated and other Other Discharge Activity Instructions:: vaginal rest and no heavy lifting greater than 10 pounds for 6 [address] while taking narcotic. keep incision clean and dry, do not submerge. Other Discharge Diet Instructions: Regular Education Materials: Understanding Preeclampsia, C Section Dc Print Language: Palestinian Activity Restrictions/Additional Instructions: follow up in clinic for incision check in 1 week, call for appointment Stand Alone Forms: Brooke Award Info., Patient Portal Info Letter Discharge Order Discharge Orders: Discharge (Routine); Ordered 12/22/24 Ordered By: Renetta Zhao Planned Discharge Date 12/22/24
== END 2024-12-22 12:00 | disposition home or self-care (01) | DRG 540 ==
LOC: S4SX 12-19 10:54 → S4NX 12-20 02:34
PROVIDERS: Admitting Provider Obstetrics & Gynecology; PCP Family Medicine; Visit Provider Student in an Organized Health Care Education/Training Program
PROC: (CPT 59514; principal; 2024-12-20 02:00)
DX: O14.04 Mild to moderate pre-eclampsia, complicating childbirth (principal); Z37.0 Single live birth; Z3A.40 40 weeks gestation of pregnancy; O99.214 Obesity complicating childbirth; O62.0 Primary inadequate contractions; E66.89 Other obesity not elsewhere classified; O99.892 Other specified diseases and conditions complicating childbirth; R19.7 Diarrhea, unspecified
CPT/HCPCS: 36415; 76805; 80053; 80307; 82570; 84156; 85025; 86780; 86850; 86900; 86901; 86923; 94664; A4649; J0456; J0689; J1100; J1885; J2250; J2405; J2590; J2795; J3010; J3490; J7050; J7120; A9270

== ENCOUNTER 2025-02-01 20:58 | Emergency (ER) | payer MEDICAID, SELFPAY ==
[2025-02-01 20:59] VITALS: BMI 41.0
[2025-02-01 21:05] VITALS: BP 144/81; PULSE 78; RESP 18; TEMP 36.6; O2SAT 100
--- NOTE | 2025-02-02 04:53 | EDNOTE_ITS ---
ED Skin Abcess FB-RME/HPI General Chief complaint: Skin/Abscess/Foreign Body Stated complaint: WOUND DRAINAGE FROM 12/20/24 Time Seen by Provider: 02/01/25 22:00 Arrival date/time: 02/01/25 20:58 29F with no significant PMH presents to ED with drainage from wound from 12/20/24. Patient denies pain and fevers/chills. Limitations: no limitations Related Data Home Medications ?Medication ?Instructions ?Recorded ?Confirmed PNV#14-iron fum-FA#4-[id number]-[id number] cap PO DAILY 5 27 mg iron-1 mg-300 mg-50 mg capsule Previous Rx's ?Medication ?Instructions ?Recorded acetaminophen 300 mg-codeine 15 mg 1 tab PO Q12H PRN p ain #14 tabs 12/22/24 tablet ibuprofen 800 mg tablet 800 mg PO Q8H PRN pain #30 t abs 12/22/24 Allergies Allergy/AdvReac Type Severity Reaction Status Date / Time No Known Allergies Allergy Verified 12/18/24 04:22 Review of Systems Review of Systems Systems Reviewed: All systems reviewed, normal except as documented Constitutional Constitutional: Reports system reviewed and no additional complaints, except as documented, Denies fever(s) and Denies headache(s) ENT Ears, Nose, Mouth, and Throat: Denies disequilibrium and Denies headache(s) Cardiovascular Cardiovascular: Reports system reviewed and no additional complaints, except as documented, Denies chest pain and Denies dyspnea Respiratory Respiratory: Reports system reviewed and no additional complaints, except as documented, Denies cough and Denies dyspnea Gastrointestinal Gastrointestinal: Reports system reviewed and no additional complaints, except as documented, Denies abdominal pain, Denies nausea and Denies vomiting Integumentary/Breasts Skin/Breast: Reports as per HPI and Reports wounds Neurologic Neurologic: Reports system reviewed and no additional complaints, except as documented, Denies confusion, Denies disequilibrium and Denies headache(s) Psychiatric Psychiatric: Denies confusion Past Medical History Past Medical History NEUROLOGIC: Negative Neurological Disorders or Seizures CARDIAC: Negative Cardiac Disorders or Congestive Heart Failure RESPIRATORY: Negative Chronic Obstructive Pulmonary Disease (COPD) or Asthma GASTROINTESTINAL: Negative Gastrointestinal Disorders GENITOURINARY: Positive Genitourinary Disorders and Kidney Stones; Negative Renal Disease REPRODUCTIVE: Negative Pelvic Inflammatory Disease or Previous Pregnancies MUSCULOSKELETAL: Negative Musculoskeletal Disorders ENDOCRINE: Negative Endocrine Disorders, Diabetes Mellitus Type 1 or Diabetes Mellitus Type 2 HEMATOLOGIC: Negative Blood Disorders or Sickle Cell Disease OTHER HISTORY: Negative Autoimmune Disease, Falls, Blood Transfusions, Blood Transfusion Reaction, Anesthesia Reactions or Cancer Family History FAMILY HISTORY: Negative Family Psychiatric Problems, Family Respiratory Disorders, Family Cardiac Disorders, Family Gastrointestinal Problems, Family Cancer, Family Surgery or Family Anesthesia Reaction Surgical History SURGICAL: Negative Section Social History SMOKING STATUS: Never smoker SUBSTANCE USE: does not use ED Exam General Limitations: Present no limitations General appearance: Present alert and in no apparent distress Head Head exam: Present atraumatic Eye Eye exam: Present normal appearance, PERRL and EOMI ENT ENT exam: Present normal exam, normal oropharynx and mucous membranes moist Neck Neck exam: Present normal inspection, full ROM and trachea midline Chest Chest inspection: Present normal inspection and symmetric chest wall rise Respiratory Respiratory exam: Present normal lung sounds bilaterally Cardiovascular Cardiovascular exam: Present regular rate, normal rhythm and normal heart sounds Abdominal Exam Abdominal exam: Present soft and normal bowel sounds Extremities Exam Extremities exam: Present normal inspection and full ROM Back Exam Back exam: Present normal inspection and full ROM Neurological Exam Neurological exam: Present alert, oriented X3 and CN II-XII intact Psychiatric Psychiatric exam: Present normal affect and normal mood Skin Skin exam: Present warm, dry, intact, normal color and other (Serous drainage from L side of wound) Course Quality Measures none Orders Category Date Time Status Wound Care NOW Care 02/01/25 22:01 Completed Vital Signs Vital signs: Vital Signs Temperature 97.8 F 02/01/25 21:05 Pulse Rate 78 02/01/25 21:05 Respiratory Rate 18 02/01/25 21:05 Blood Pressure 144/81 H 02/01/25 21:05 Pulse Oximetry (%) 100 02/01/25 21:05 Oxygen Delivery Method Room Air 02/01/25 21:05 O2 at 100% on RA and WNLs Skin / Abscess / Foreign Body MDM Narrative MDM Narrative:: 29F with no significant PMH presents to ED with drainage from wound from 12/20/24. Patient denies pain and fevers/chills. Physical exam reveals serous fluid drainage from point opening on L-side of C- section scar/wound. No tenderness or redness. Patient is afebrile, calm, and alert. Wound covered with gauze. Counseled to see OBGYN outpatient tomorrow. Spoke to Dr. Leahy, OB, who agrees with plan. Patient data External records reviewed:: [facility] previous records Clinical information provided by:: patient Social determinants that could affect healthcare access:: none Patient has the following chronic illnesses:: none How is presenting disease/condition affected by chronic disease/condition?: no chronic disease Evaluation data The following diagnostics were reviewed and interpreted by me:: other (specify) (none) Lab and/or radiology exams considered but not ordered:: not ordered Interpretation Summary: n/a Medications / Prescriptions Medications or Prescriptions considered but not ordered:: not ordered Medication administrations:: n/a Consultations Consultation(s) initiated? (list below): Yes Diagnosis Skin/Abscess Differential Diagnosis: abscess of skin or subcutaneous tissue, viral exanthem, dermatophytosis, urticaria, herpes zoster, allergic reaction to drug, cellulitis, eczema, insect bites, impetigo, contact dermatitis and other ( wound complication) Most likely diagnosis given after review of the tests above:: wound complication Admission Indicated Admission indicated?: not indicated Admission Request Was there a request for admission?: No Disposition Plan Disposition Plan: Discharge Discharge Attestation Discharge Attestation: The patient and all family members were given an opportunity to ask questions and understood the discharge instructions. Discharge instructions specifically effects, indications for sooner follow up or return to the emergency department, and the expected course of current diagnosis. Patient condition: Stable Discharge Plan Plan Patient Disposition: HOME (Self Care) Disposition Comment: Stable Prescriptions/Referrals Prescriptions/Med Rec: No Action acetaminophen-codeine 300-15 mg tablet 1 tab PO Q12H PRN (Reason: pain) Qty: 14 0RF ibuprofen 800 mg tablet 800 mg PO Q8H PRN (Reason: pain) Qty: 30 0RF PNV #14-iron-FA#3-[id number] 27 mg iron-1 mg -300 mg-50 mg capsule PO DAILY Referrals: Temporary Provider,ED [Physician] - In 1 week Problem List Clinical Impression: section wound complication Patient/Caregiver Discharge Instructions Additional Instructions: Please follow-up with PCP within 24-48 hours and return immediately if symptoms worsen. Call OBGYN/[facility] tomorrow and ask to be seen tomorrow or Thursday. Print Language: Swedish Stand Alone Forms: Patient Portal Info Letter PA/MASSAGE OPERATOR Supervising Physician PA/MASSAGE OPERATOR Supervising Physician: Dr. Torres
== END 2025-02-01 22:35 | disposition home or self-care (01) ==
PROVIDERS: Emergency Provider Emergency Medicine
DX: O90.89 Other complications of the puerperium, not elsewhere classified (principal)
CPT/HCPCS: 99282

== ENCOUNTER 2025-08-30 12:56 | Emergency (ER) | payer MEDICAID, SELFPAY ==
[2025-08-30 12:56] VITALS: BMI 41.0
[2025-08-30 13:33] VITALS: BP 127/81; PULSE 82; RESP 20; TEMP 36.9; O2SAT 99
--- NOTE | 2025-08-30 13:39 | XR_ITS ---
Examination: OB Transvaginal ultrasound of the pelvis, complete Technique: Transvaginal sonographic images pelvis performed using li scale imaging Exam date and time: August 30, 2025, 1506 hours INDICATIONS: Positive test today FINDINGS: Uterus 8.4 cm, no intrauterine gestation Lower uterine segment cervix endometrial stripe 1.7 cm endometrial stripe in the fundus body 0.9 cm Right ovary 2.0 cm arterial flow Left ovary 3.9 cm arterial flow 3.5 x 4.1 cm cyst with some internal echoes IMPRESSION: Thickened endometrial stripe, clinical correlation advised, if retained products of conception are a clinical consideration, recommend short-term follow-up transvaginal pelvic sonography Left ovarian simple cyst 3.5 x 4.1 x 3.1 cm.
[2025-08-30 14:50] LABS: Alanine Aminotransferase 170 U/L (10-49); Albumin, Serum 4.4 gm/dL (3.5-5.0); Albumin/Globulin Ratio 1.6 (1.2-2.2); Alkaline Phosphatase 112 U/L (46-116); Anion Gap 11 (7-16); Aspartate Amino Transferase 155 U/L (0-34); BUN/Creatinine Ratio 9 Ratio (12-20); Beta HCG,Quantitative 675 mIU/mL (<5.0); Bilirubin,Total 0.6 mg/dL (0.3-1.2); Blood Urea Nitrogen 6 mg/dL (9-23); Calcium 9.2 mg/dL (8.3-10.6); Calcium (Corrected) 9.2 mg/dL (8.5-10.1); Carbon Dioxide 24.1 mMol/L (20.0-31.0); Chloride 105 mMol/L (98-107); Creatinine (Component) 0.7 mg/dL (0.6-1.3); Estimated Creatinine Clearance 122.4 mL/min (>60); Globulin 2.7 gm/dL (2.3-3.5); Glucose 93 mg/dL (74-106); Osmolality,Calculated 277 (275-295); Potassium 4.1 mMol/L (3.4-5.1); Sodium 140 mMol/L (136-145); Total Protein 7.1 gm/dL (5.7-8.2); eGFR > 60 See Note
[2025-08-30 15:11] LABS: Basophils # (Auto) 0.1 Thou/mm3 (0.0-0.2); Basophils % (Auto) 1 % (0-2.5); Eosinophils # (Auto) 0.2 Thou/mm3 (0.0-0.5); Eosinophils % (Auto) 2 % (0-10); Hematocrit 39.1 % (36.0-46.0); Hemoglobin 13.0 g/dL (12.0-16.0); Immature Granulocytes Auto 0.02 Thou/mm3 (0.00-0.00); Lymphocytes # (Auto) 2.2 Thou/mm3 (1.0-4.8); Lymphocytes % (Auto) 24 % (10-50); Mean Corpuscular HGB Conc 33.2 g/dl (31.0-37.0); Mean Corpuscular Hemoglobin 28.4 pg (25.0-35.0); Mean Corpuscular Volume 85 fL (80-100); Monocytes # (Auto) 0.7 Thou/mm3 (0.0-0.8); Monocytes % (Auto) 8 % (0-12); Neutrophils # (Auto) 6.0 Thou/mm3 (1.8-7.7); Neutrophils % (Auto) 66 % (37-80); Nucleated Red Blood Cell # 0.00 Thou/mm3 (0.00-0.00); Nucleated Red Blood Cell % 0 /100 WBC (0); Platelet Count 287 Thou/mm3 (140-440); RDW Standard Deviation 44.1 fL (36.4-46.3); Red Blood Count 4.58 Miln/mm3 (4.00-5.20); White Blood Count 9.1 Thou/mm3 (3.6-11.0)
--- NOTE | 2025-08-30 16:59 | PD.EDVAGBL ---
ED OB Contraction Preg RMI/HPI General Chief complaint: Vaginal Bleeding Stated complaint: VAGINAL BLEEDING; + TEST YESTERDAY Time Seen by Provider: 08/30/25 13:01 Arrival date/time: 08/30/25 12:56 29-year-old female presents to the emergency department today stating that she tested positive for yesterday patient reports vaginal spotting today Limitations: no limitations Related Data Home Medications ?Medication ?Instructions ?Recorded ?Confirmed PNV 14-iron pqu-ID4-zgb-docusate cap PO DAILY 12/17/24 27 mg iron-1 mg-300 mg-50 mg capsule Previous Rx's ?Medication ?Instructions ?Recorded acetaminophen 300 mg-codeine 15 mg 1 tab PO Q12H PRN pain #14 tabs 12/22/24 tablet ibuprofen 800 mg tablet 800 mg PO Q8H PRN pain #30 tabs 12/22/24 Allergies Allergy/AdvReac Type Severity Reaction Status Date / Time No Known Allergies Allergy Verified 08/30/25 12:58 Review of Systems Review of Systems Systems Reviewed: All systems reviewed, normal except as documented Constitutional Constitutional: Reports system reviewed and no additional complaints, except as documented, Denies fever(s) and Denies headache(s) Eyes Eyes: Reports system reviewed and no additional complaints, except as documented and Denies blurry vision ENT Ears, Nose, Mouth, and Throat: Reports system reviewed and no additional complaints, except as documented, Denies headache(s), Denies nasal congestion and Denies nasal discharge Cardiovascular Cardiovascular: Reports system reviewed and no additional complaints, except as documented, Denies chest pain and Denies dyspnea Respiratory Respiratory: Reports system reviewed and no additional complaints, except as documented, Denies chest congestion, Denies cough and Denies dyspnea Gastrointestinal Gastrointestinal: Reports system reviewed and no additional complaints, except as documented and Denies abdominal pain Genitourinary Genitourinary: Reports system reviewed and no additional complaints, except as documented and Reports abnormal vaginal bleeding Integumentary/Breasts Skin/Breast: Reports system reviewed and no additional complaints, except as documented and Denies rash Neurologic Neurologic: Reports system reviewed and no additional complaints, except as documented, Reports as per HPI and Denies headache(s) Past Medical History Past Medical History NEUROLOGIC: Negative Neurological Disorders or Seizures CARDIAC: Negative Cardiac Disorders or Congestive Heart Failure RESPIRATORY: Negative Chronic Obstructive Pulmonary Disease (COPD) or Asthma GASTROINTESTINAL: Negative Gastrointestinal Disorders GENITOURINARY: Positive Genitourinary Disorders and Kidney Stones; Negative Renal Disease REPRODUCTIVE: Negative Pelvic Inflammatory Disease or Previous Pregnancies MUSCULOSKELETAL: Negative Musculoskeletal Disorders ENDOCRINE: Negative Endocrine Disorders, Diabetes Mellitus Type 1 or Diabetes Mellitus Type 2 HEMATOLOGIC: Negative Blood Disorders or Sickle Cell Disease OTHER HISTORY: Negative Autoimmune Disease, Falls, Blood Transfusions, Blood Transfusion Reaction, Anesthesia Reactions or Cancer Family History FAMILY HISTORY: Negative Family Psychiatric Problems, Family Respiratory Disorders, Family Cardiac Disorders, Family Gastrointestinal Problems, Family Cancer, Family Surgery or Family Anesthesia Reaction Surgical History SURGICAL: Negative Section Social History SMOKING STATUS: Never smoker SUBSTANCE USE: does not use ED Exam General Limitations: Present no limitations General appearance: Present alert and in no apparent distress Head Head exam: Present atraumatic, normocephalic and normal inspection Eye Eye exam: Present normal appearance, PERRL and EOMI; Absent conjunctival injection ENT ENT exam: Present normal exam, normal oropharynx and mucous membranes moist Neck Neck exam: Present normal inspection, full ROM and trachea midline Chest Chest inspection: Present normal inspection and symmetric chest wall rise Respiratory Respiratory exam: Present normal lung sounds bilaterally; Absent respiratory distress Cardiovascular Cardiovascular exam: Present regular rate, normal rhythm and normal heart sounds Abdominal Exam Abdominal exam: Present soft and normal bowel sounds; Absent distention, tenderness, guarding, rebound or rigidity Extremities Exam Extremities exam: Present normal inspection and full ROM Back Exam Back exam: Present normal inspection and full ROM Neurological Exam Neurological exam: Present alert, oriented X3 and CN II-XII intact Psychiatric Psychiatric exam: Present normal affect and normal mood Skin Skin exam: Present warm, dry, intact and normal color Course Quality Measures none Orders Category Date Time Status US OB transvaginal Stat Exams 08/30/25 13:39 Completed ABO/RH Type Stat Lab 08/30/25 13:54 Completed Beta HCG,Quantitative Stat Lab 08/30/25 13:54 Completed CBC Stat Lab 08/30/25 13:54 Completed Comprehensive Metabolic Panel Stat Lab 08/30/25 13:54 Completed Vital Signs Vital signs: Vital Signs Temperature 98.5 F 08/30/25 13:33 Pulse Rate 82 08/30/25 13:33 Respiratory Rate 20 08/30/25 13:33 Blood Pressure 127/81 08/30/25 13:33 Pulse Oximetry (%) 99 08/30/25 13:33 Oxygen Delivery Method Room Air 08/30/25 13:33 O2 saturation 99% r.a wnl Vaginal Bleeding MDM Narrative MDM Narrative: 29-year-old female presents to the emergency department today stating that she tested positive for yesterday patient reports vaginal spotting today On exam patient well-appearing patient does not appear look toxic no distress Lab work and imaging obtained no acute emergent findings noted Patient found have a cyst on ultrasound I believe patient is too early to see anything on the ultrasound as of yet Patient to have repeat lab work and imaging to document viable Patient discharged home no distress to follow-up with a ELECTRONIC DEVICE MONITOR in the next 24 to 48 hours worsening symptoms or concerns return immediately Patient data External records reviewed:: [facility] previous records Clinical information provided by:: patient Social determinants that could affect healthcare access:: none Patient has the following chronic illnesses:: None How is presenting disease/condition affected by chronic disease/condition?: no chronic disease Evaluation data The following diagnostics were reviewed and interpreted by me:: lab results and radiology exam(s) Lab and/or radiology exams considered but not ordered:: Labs radiology obtained Interpretation Summary: Reviewed by me Medications / Prescriptions Medications or Prescriptions considered but not ordered:: Given Medication administrations:: Given Consultations Consultation(s) initiated? (list below): No Diagnosis Vaginal Bleeding Differential Diagnosis: missed , threatened , dysfunctional uterine bleeding and vaginal bleeding Most likely diagnosis given after review of the tests above:: Vaginal bleeding Admission Indicated Admission indicated?: not indicated Admission Request Was there a request for admission?: No Disposition Plan Disposition Plan: Discharge Discharge Attestation Discharge Attestation: The patient and all family members were given an opportunity to ask questions and understood the discharge instructions. Discharge instructions specifically effects, indications for sooner follow up or return to the emergency department, and the expected course of current diagnosis. Patient condition: Stable Discharge Plan Plan Patient Disposition: HOME (Self Care) Discharge Disposition comment: Stable Prescriptions/Referrals Prescriptions/Med Rec: No Action acetaminophen-codeine 300-15 mg tablet 1 tab PO Q12H PRN (Reason: pain) Qty: 14 0RF ibuprofen 800 mg tablet 800 mg PO Q8H PRN (Reason: pain) Qty: 30 0RF PNV [id number]-dha-docusate 27 mg iron-1 mg -300 mg-50 mg capsule PO DAILY Referrals: No Primary/Family,Physician [Primary Care Provider] - In 1 week Problem List Clinical Impression: Vaginal bleeding during , Ovarian cyst Patient/Caregiver Discharge Instructions Education Materials: Ovarian Cysts Additional Instructions: Please follow up with your ELECTRONIC DEVICE MONITOR doctor in the next 24-48hrs for any worsening symptoms return here immediately Print Language: Persian Stand Alone Forms: Brooke Award Info., Work/School Release, Patient Portal Info Letter PA/PRODUCTION TROUBLESHOOTER Supervising Physician PA/PRODUCTION TROUBLESHOOTER Supervising Physician: Dr. Harmon
== END 2025-08-30 17:16 | disposition home or self-care (01) ==
PROVIDERS: Nurse Practitioner Primary Care; Emergency Provider Emergency Medicine
DX: O46.90 Antepartum hemorrhage, unspecified, unspecified trimester (principal); N83.209 Unspecified ovarian cyst, unspecified side
CPT/HCPCS: 36415; 76817; 80053; 84702; 85025; 86900; 86901; 99283